=== PATIENT | male | born 1975 | race Caucasian/White ===

== ENCOUNTER 2017-04-22 09:53 | Emergency (ER) | payer SELFPAY ==
[~2017-04-22] VITALS: Ht 188 cm; Wt 117.0 kg
[2017-04-22 09:56] VITALS: BP 195/97; PULSE 85; RESP 22; TEMP 98.5; O2SAT 98
[2017-04-22 10:08] VITALS: BP 206/94; PULSE 86; RESP 18; O2SAT 99
[2017-04-22] MEDS ORDERED: MEDR4PAK PO (10:19)
[2017-04-22] MEDS ORDERED: CYCL10TA PO (10:19)
--- NOTE | 2017-04-22 10:27 | PD ---
HPI Chief Complaint: Hip Injury Time Seen by Provider: 10:04 Travel History International Travel<30 days: No Contact w/Intl Traveler<30days: No Traveled to known affect area: No History of Present Illness HPI Patient comes to the emergency department complaining of left-sided low back pain ongoing for a week. Patient states pain began after horsing around. Patient denies any direct trauma, loss change in bowel or bladder, IV drug use, or fevers. Patient reports trying [id number] medication as well as Biofreeze with minimal to no improvement of symptoms. Pain is worse with certain movement. Pain radiates to left lower extremity. Severity mild to moderate. Patient denies history of this in the past. [facility] Past Medical History Cardiovascular Problems: Yes Hypertension: Yes ?: Not Social History Alcohol Use: Yes (on occasion) Tobacco Use: Yes (1 ppd) Substance Use: No Allergies-Medications (Allergen,Severity, Reaction): Coded Allergies: cephalexin (Verified Allergy, Severe, Hives, 04/22/17) Reported Meds & Prescriptions Reported Meds & Active Scripts Active Flexeril (Cyclobenzaprine HCl) 10 Mg Tab 10 Mg PO Q8HR PRN Medrol Dosepak (Methylprednisolone) 4 Mg Dspk 4 Mg PO DIRECTED Per Pharmacist direction Review of Systems Except as stated in HPI: all other systems reviewed are Neg Physical Exam Narrative GENERAL: Well-developed, overly nourished, in no acute distress, and non-ill appearing. SKIN: Focused skin assessment warm and dry. HEAD: Atraumatic. Normocephalic. EYES: Pupils equal and round. EOMI. No scleral icterus. No injection or drainage. ENT: No nasal bleeding or discharge. Mucous membranes pink and moist. NECK: Trachea midline. Supple. No nuclear rigidity. CARDIOVASCULAR: Dorsal pulses 2+, intact, and equal bilaterally. RESPIRATORY: No accessory muscle use. No respiratory distress. MUSCULOSKELETAL: No obvious deformities. No clubbing. No cyanosis. No edema. Full range of motion. No tenderness or crepitus or midline of the lumbar spine. Patient reports point tenderness near left SI joint. Straight leg test positive on the left. Strength 5 out of 5 and equal bilateral lower extremities. Sensation intact over first webspace in bilateral lower extremities. NEUROLOGICAL: Awake and alert. No obvious cranial nerve deficits. Motor grossly within normal limits. Normal speech. PSYCHIATRIC: Appropriate mood and affect; insight and judgment normal. Data Data Last Documented VS Vital Signs Date Time Temp Pulse Resp B/P (MAP) Pulse Ox O2 Delivery O2 Flow Rate FiO2 04/22/17 10:08 86 18 99 Room Air 04/22/17 10:08 206/94 (131) 04/22/17 09:56 98.5 Orders Orders Ed Discharge Order (04/22/17 10:18) Dexamethasone Inj (Decadron Inj) (04/22/17 10:30) Acetamin-Hydrocod 325-5 Mg ([place] 5-325 (04/22/17 10:30) Cyclobenzaprine (Flexeril) (04/22/17 10:30) MDM Medical Decision Making Medical Screen Exam Complete: Yes Emergency Medical Condition: Yes Differential Diagnosis Fracture, strain, sciatica, dislocation Narrative Course The patient presented complaining of back pain with radiation down leg. There was no history of recent fall or trauma. There was no evidence to support genitourinary etiology. There is also no evidence to suggest vascular pathology such as AAA dissection. No fevers or other evidence to suspect infectious processes, abscess, osteomyelitis etc. The patients neurological exam is normal with normal motor and sensory. There is no saddle paresthesias reported and no bowel or bladder incontinence or retention. I suspect the pain is mechanical in nature with sciatica. Clinical suspicion, plan of care and management was discussed with the patient. The patient was instructed to follow up with their health care provider. The patient was also instructed to return if the pain worsened, changed, or developed weakness or bowel or bladder trouble. The patient agreed with plan. Patient in no obvious distress upon re-evaluation. Patient was asked if they wanted to speak to my attending, which the patient did not wish to do at this time. Any questions/concerns in reference to patient diagnosis/condition discussed and clarified prior to patient's discharge. Reinforced sheer importance of close follow up with patient's primary physician or primary care clinic. Instructed patient to return to ED immediately, if symptoms return/ worsen. Patient showed understanding of above instructions. Further instructions and recommendations were detailed in discharge paperwork. Patient ambulated without difficulty out of ED at discharge. Diagnosis Primary Impression: Sciatica of left side Referrals: Ras Ordoñez Jr., MD Patient Instructions: General Instructions, Sciatica (ED) Departure Forms: Work Release Enter return to work date: Apr 24, 2017 Additional Instructions: Follow-up with your primary care physician and/or orthopedic in 3-5 days for reevaluation. Take all medication as prescribed. Return to the emergency department if symptoms get worse. Med/Other Pt SpecificInfo: Prescription(s) given Scripts Cyclobenzaprine (Flexeril) 10 Mg Tab 10 MG PO Q8HR Y for MUSCLE PAIN, #15 TAB 0 Refills Prov: Sangeeta Zhu MD 04/22/17 Methylprednisolone Dosepak (Medrol Dosepak) 4 Mg Dspk 4 MG PO DIRECTED, #1 DSPK 0 Refills Per Pharmacist direction Prov: Sangeeta Zhu MD 04/22/17 Disposition: 01 DISCHARGE HOME Condition: Stable Patricio Khan Apr 22, 2017 10:27
[2017-04-22] MEDS ORDERED: CYCLOBENZAPRINE HCL 10 MG TAB PO ONE (10:30)
[2017-04-22] MEDS ORDERED: DEXAMETHASONE SOD PHOS 20 MG/5 ML VIAL IM ONE (10:30)
[2017-04-22] MEDS ORDERED: ACETAMINOPHEN/HYDROcodone 325 MG/5 MG TAB PO ONE (10:30)
== END 2017-04-22 11:04 | disposition home or self-care (01) ==
LOC: NEPD 09:53
DX: M54.32 Sciatica, left side (principal); I10 Essential (primary) hypertension; F17.200 Nicotine dependence, unspecified, uncomplicated
CPT/HCPCS: 96372; 99283; J1100

== ENCOUNTER 2017-04-25 17:50 | Emergency (ER) | payer SELFPAY ==
[~2017-04-25 17:50] MED LIST: CYCL10TA PO; MEDR4PAK PO
[2017-04-25 18:05] VITALS: BP 201/85; PULSE 73; RESP 20; TEMP 99.1; O2SAT 100
--- NOTE | 2017-04-25 19:10 | RADRPT ---
EXAM DATE/TIME: 04/25/2017 18:25 [place] COMPARISON: No previous studies available for comparison. INDICATIONS : Left hip pain for the past week. No known injury. MEDICAL HISTORY : None. SURGICAL HISTORY : ORIF left ankle. ENCOUNTER: Initial ACUITY: 1 week PAIN SCORE: 10/10 LOCATION: Left hip. FINDINGS: Examination of the left hip was performed with AP Pelvis. The primary and secondary trabecular patte rn of the femoral neck is intact. The hip joint is of normal width without significant sclerosis or bony hypertrophy. The acetabulum is grossly intact. CONCLUSION: Normal examination for a patient of this age. Jacobo Isaac MD on April 25, 2017 at 19:03 Board Certified Radiologist. This report was verified electronically.
[2017-04-25] MEDS ORDERED: NORC5TAB PO (20:49)
[2017-04-25] MEDS ORDERED: CYCL10TA PO (20:49)
--- NOTE | 2017-04-25 20:52 | PD ---
HPI Chief Complaint: Hip Injury Time Seen by Provider: 20:33 Travel History International Travel<30 days: No Contact w/Intl Traveler<30days: No Traveled to known affect area: No History of Present Illness HPI 42 YO M presents to the ED for evaluation of 10/10 left hip and leg pain. Onset 04/22 after the patient felt and heard a pop in the area while rough housing with his son. Pain is constant, spasming, worsened by range of motion, radiating toward the medial knee.. The patient endorses weakness and limitations to range of motion of the leg. He denies numbness, tingling, incontinence, saddle anesthesia. He was evaluated the day of the accident and prescribed muscle relaxants and steroids. He states that he completed these medications but has had no improvement of his symptoms. PFS Past Medical History Cardiovascular Problems: Yes (HTN) Hypertension: Yes Immunizations Current: Yes Tetanus Vaccination: Unknown Influenza Vaccination: No Social History Alcohol Use: Yes (on occasion) Tobacco Use: Yes (1 ppd) Substance Use: No Allergies-Medications (Allergen,Severity, Reaction): Coded Allergies: cephalexin (Verified Allergy, Severe, Hives, 04/22/17) Reported Meds & Prescriptions Reported Meds & Active Scripts Active Tramadol (Tramadol HCl) 50 Mg Tab 50 Mg PO Q6H PRN Robaxin (Methocarbamol) 500 Mg Tab 1,000 Mg PO TID Flexeril (Cyclobenzaprine HCl) 10 Mg Tab 10 Mg PO Q8HR PRN Medrol Dosepak (Methylprednisolone) 4 Mg Dspk 4 Mg PO DIRECTED Per Pharmacist direction Review of Systems Except as stated in HPI: all other systems reviewed are Neg Physical Exam Narrative GENERAL: Well-nourished, well-developed white male in NAD. SKIN: Focused skin assessment warm/dry. HEAD: Normocephalic. EYES: No scleral icterus. No injection or drainage. NECK: Supple, trachea midline. No JVD or lymphadenopathy. CARDIOVASCULAR: Regular rate and rhythm without murmurs, gallops, or rubs. RESPIRATORY: Breath sounds equal bilaterally. No accessory muscle use. GASTROINTESTINAL: Abdomen soft, non-tender, nondistended. MUSCULOSKELETAL: No cyanosis, or edema. FOCUSED LEFT LOWER EXTREMITY EXAM: 2+ DP pulse. +TTP of the anterolateral hip, medial aspect of the knee. 3/5 strength to resisted abduction. All other muscle groups 5/5 strength. Patient is able to extend the knee to 0 and flex the knee to 90 although this is painful. Neurovascularly intact distally. BACK: Nontender without obvious deformity. No CVA tenderness. Data Data Last Documented VS Vital Signs Date Time Temp Pulse Resp B/P (MAP) Pulse Ox O2 Delivery O2 Flow Rate FiO2 04/25/17 20:57 172/81 (111) 04/25/17 18:05 99.1 73 20 100 Orders Orders Hip, Uni(Ap&Lat) W Ap Pelvis (04/25/17 ) Mandatory Outpatient Referral (04/25/17 20:47) Acetamin-Hydrocod 325-5 Mg ([place] 5-325 (04/25/17 21:00) Cyclobenzaprine (Flexeril) (04/25/17 21:00) Crutches (04/25/17 20:49) Ed Discharge Order (04/25/17 20:52) MDM Medical Decision Making Medical Screen Exam Complete: Yes Emergency Medical Condition: Yes Differential Diagnosis Muscle tear versus muscle strain versus muscle spasm versus other Narrative Course 42 YO M presents to the ED for evaluation of 11/15 left hip and leg pain. Onset 04/22 after the patient felt and heard a pop in the area while rough housing with his son. Pain is constant, spasming, worsened by range of motion, radiates toward the medial knee. The patient endorses weakness and limitations to range of motion of the leg. Took a short course of steroids without improvement of symptoms. On exam this is a white male in no acute distress. He is moving very gingerly and complaining of spasming during testing. Focused exam of the left leg reveals 2+ DP pulse. +TTP of the anterolateral hip, medial aspect of the knee. 3/5 strength to resisted abduction. All other muscle groups 5/5 strength. Patient is able to extend the knee to 0 and flex the knee to 90 although this is painful. Neurovascularly intact distally. X-ray of the hip reveals no acute bony injury. I suspect the patient has a muscle tear, he needs MRI imaging on an outpatient basis to determine the degree. Mandatory outpatient consult was placed with the on-call orthopedist. Patient was prescribed a short course of tramadol and muscle relaxants. He was provided with a pair crutches. He is provided with a note for work. I explained to the mandatory referral process to the patient and his . They're agreeable to the care plan. The patient is stable and discharged home. Diagnosis Primary Impression: Muscle strain of left hip Qualified Codes: S76.012A - Strain of muscle, fascia and tendon of left hip, initial encounter Referrals: Lisa Rdz MD Departure Forms: Tests/Procedures, Work Release Special Instructions: No work until cleared by orthopedist. Additional Instructions: Rest, hydrate. Take medications as prescribed. Do not drive until taking pain medications or muscle relaxants as they can make you drowsy. Do not mix the previously prescribed Flexeril with the newly prescribed tramadol. Gentle weightbearing as tolerated. No working until cleared by Dr. Rdz. A mandatory outpatient referral has been placed on her behalf. A field service representative of the hospital or the doctor's office will be in touch in the next few days with further instructions. Return to the ED for worsening symptoms or any urgent or emergent medical condition. Med/Other Pt SpecificInfo: Prescription(s) given Scripts Tramadol (Tramadol) 50 Mg Tab 50 MG PO Q6H Y for PAIN, #12 TAB 0 Refills Prov: Clif Freire MD 04/25/17 Methocarbamol (Robaxin) 500 Mg Tab 1000 MG PO TID for Muscle Spasm, #20 TAB 0 Refills Prov: Clif Freire MD 04/25/17 Disposition: 01 DISCHARGE HOME Condition: Stable Brandie Agustin Apr 25, 2017 20:52
[2017-04-25] MEDS ORDERED: TRAM50TA PO (20:56)
[2017-04-25] MEDS ORDERED: ROBA500T PO (20:56)
[2017-04-25 20:57] VITALS: BP 172/81
[2017-04-25] MEDS ORDERED: CYCLOBENZAPRINE HCL 10 MG TAB PO ONE (21:00)
[2017-04-25] MEDS ORDERED: ACETAMINOPHEN/HYDROcodone 325 MG/5 MG TAB PO ONE (21:00)
== END 2017-04-25 21:06 | disposition home or self-care (01) ==
LOC: NED 17:50 → NEPK 21:06
DX: S76.012A Strain of muscle, fascia and tendon of left hip, initial encounter (principal); X50.9XXA Other and unspecified overexertion or strenuous movements or postures, initial encounter; Y93.83 Activity, rough housing and horseplay
CPT/HCPCS: 73502; 99283; E0113